=== PATIENT | female | born 1995 | race Caucasian/White ===

== ENCOUNTER → 2021-07-03 11:56 | Outpatient (CLI) | payer OTHER, SELFPAY | PROVIDERS: Visit Provider Nurse Practitioner | DX: U07.1 COVID-19 (principal) | CPT/HCPCS: C9803; U0003; U0005 ==

== ENCOUNTER 2024-04-19 19:25 | Inpatient (IN) | payer BC, SELFPAY ==
[2024-04-19 19:27] VITALS: BP 127/57; PULSE 69; RESP 16; TEMP 36.4; O2SAT 99; BMI 20.5
--- NOTE | 2024-04-19 19:45 | [facility].EDGENADL ---
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 continued to have severe pain, so she was given a second dose of IV morphine as well as IV Toradol. She continued to have vomiting despite Zofran, so she was then given IV Phenergan. We did try to give her oral potassium before we knew about her volvulus, and she did vomit this back up. On reassessment, she did have some final improvement after second dose of morphine. Vitals are stable on cardiac telemetry, no rebound or guarding noted on abdominal exam. Dr. Mcgee assumed care of the patient at 2300 and had an interactive discussion with Dr. Atkinson with general surgery. Patient was taken to the OR in stable condition. Critical Care <Kellen Nelson, - Last Filed: 04/20/24 01:27> Critical Care Time Critical Care Time: No
[2024-04-19 20:00] VITALS: BP 148/74; PULSE 68; O2SAT 96
[2024-04-19 20:24] LABS: Basophils % 0.5 % (0.1-2.0); Eosinophils % 0.4 % (0.1-12.0); Hematocrit 39.9 % (37.0-47.0); Hemoglobin 13.5 g/dL (12.2-16.2); Lymphocytes # 1.6 K/mm3 (0.7-4.5); Lymphocytes % 18.9 % (10-50); Mean Corpuscular Hemoglobin 29.6 pg (27.0-31.2); Mean Corpuscular Volume 87.2 fl (81-99); Mean Platelet Volume 7.7 fl (7.4-10.4); Monocytes # 0.4 K/mm3 (0.1-1.0); Monocytes % 4.6 % (1.7-9.3); Neutrophils # 6.5 K/mm3 (1.8-7.8); Neutrophils % 75.6 % (37.0-80.0); Platelet Count 321 K/mm3 (142-424); Red Blood Count 4.57 M/mm3 (4.20-5.40); Red Cell Distribution Width 12.2 % (11.5-17.5); White Blood Count 8.7 K/mm3 (4.8-10.8)
[2024-04-19] MEDS: ONDANSETRON 4MG/2ML VIAL 4 MG IV (20:24)
[2024-04-19] MEDS: MORPHINE 4MG/ML SYRINGE 4 MG IV ×2 (20:24→22:36)
[2024-04-19 20:28] LABS: Albumin Level 4.1 g/dl (3.5-5.0); Chloride 105 mmol/L (98-107)
[2024-04-19 20:29] LABS: Sodium 142 mmol/L (136-145)
[2024-04-19 20:30] VITALS: BP 106/73; PULSE 52; O2SAT 99
[2024-04-19 20:31] LABS: Alanine Aminotransferase 21 U/L (12-78); Alkaline Phosphatase 41 U/L (38-126); Aspartate Amino Transferase 25 U/L (14-36); Bilirubin,Total 0.3 mg/dl (0.2-1.3); Blood Urea Nitrogen 13 mg/dl (7-17); Carbon Dioxide 28 mmol/L (22.0-30.0); Creatinine Clearance Estimated 117 mL/min (50-200); Estimated Glomerular Filt Rate 117 ml/min (>60); GFR (African American) 141 ML/MIN (>60); Lipase 69 U/L (23-300)
[2024-04-19 20:32] LABS: Albumin/Globulin Ratio 1.5 (1.1-1.8); Calcium 8.5 mg/dl (8.4-10.2); Globulin 2.8 g/dL (1.3-3.2); Glucose 159 mg/dl (74-100); Total Protein,Serum 6.9 g/dl (6.3-8.2)
[2024-04-19 20:48] LABS: HCG Qualitative, Serum Negative (Negative)
[2024-04-19 21:00] VITALS: BP 110/74; PULSE 54; O2SAT 100
[2024-04-19 21:30] VITALS: BP 112/75; PULSE 59; O2SAT 100
[2024-04-19] MEDS: KETOROLAC 30MG/ML VIAL 15 MG IV (22:03)
[2024-04-19] MEDS: POTASSIUM CHLORIDE 20MEQ TAB 40 MEQ PO (22:03)
--- NOTE | 2024-04-19 22:45 | CT_ITS ---
PROCEDURE INFORMATION: Exam: CT Abdomen And Pelvis With Contrast Exam date and time: 04/19/2024 11:13 PM Age: 29 years old Clinical indication: Abdominal pain; Additional info: Pelvic pain, severe TECHNIQUE: Imaging protocol: Computed tomography of the abdomen and pelvis with contrast. Radiation optimization: All CT scans at this facility use at least one of these dose optimization techniques: automated exposure control; mA and/or kV adjustment per patient size (includes targeted exams where dose is matched to clinical indication); or iterative reconstruction. Contrast material: ISOVUE; Contrast volume: 75 ml; Contrast route: IV; COMPARISON: No relevant prior studies available. FINDINGS: Liver: Mild periportal edema. Measures 17 cm. No mass. Gallbladder and biliary ducts: Normal. No calcified stones. No ductal dilation. Pancreas: Normal. No ductal dilation. Spleen: Normal. No splenomegaly. Adrenal glands: Normal. No mass. Kidneys and ureters: Normal. No hydronephrosis. Stomach and bowel: Proportionally distended cecum and right colon with adjacent converging mesenteric vessels (series 601, image 29). Distended stomach with gastric content. Appendix: Not visualized. Intraperitoneal space: Small free fluid collection in pelvis. Vasculature: Mesenteric vessels converging adjacent to dilated right colon and cecum. In Lymph nodes: Unremarkable. No enlarged lymph nodes. Urinary bladder: Unremarkable as visualized. Reproductive: Unremarkable as visualized. Bones/joints: Pectus excavatum deformity. Soft tissues: Unremarkable. IMPRESSION: 1. Proportionally distended cecum and right colon with adjacent converging mesenteric vessels suspicious for sequela of cecal volvulus. 2. Mild periportal edema. Although nonspecific can be seen with hepatic inflammation including hepatitis and/or congestion among differential considerations. 3. Small free fluid collection in pelvis.
--- NOTE | 2024-04-19 22:45 | PC.NURSE ---
pt in US at this time. US tech called and informed ED staff pt needed pain meds. pt medicated in US room per mar
[2024-04-19] MEDS: SODIUM CHLORIDE 0.9% 10ML SYR (RAD ONLY) 10 ML IV (23:25)
[2024-04-19] MEDS: IOPAMIDOL-370 (76%);100ML BOTTLE 75 ML IV (23:25)
[2024-04-19 23:29] VITALS: BP 115/76; O2SAT 99
[2024-04-19] MEDS: PROMETHAZINE HCL 25MG/ML 1ML VIAL 12.5 MG IV (23:53)
[2024-04-19] MEDS: SODIUM CHLORIDE 0.9% 25ML BAG 25 ML IV (23:54)
[2024-04-20] VITALS (25 sets, daily range): BP systolic 95–139; BP diastolic 49–76; PULSE 50–92; RESP 14–19; TEMP 36.5–43; O2SAT 95–100
[2024-04-20] MEDS: CEFAZOLIN 1GM VIAL 1 GM (00:11)
[2024-04-20] MEDS: METRONIDAZ/SOD CHL 500 MG/100 ML PIGGYBACK 100 MG IV (00:11)
--- NOTE | 2024-04-20 01:06 | EXP.SURG.CON ---
History of Present Illness *Admission Date: 04/20/24 *Reason for visit:: Cecal volvulus *History of present illness: This is a 29-year-old female who presents to the emergency department for evaluation regarding abdominal pain. A CT scan was obtained and revealed changes consistent with cecal volvulus. Currently her pain has improved. She has remained afebrile with stable normal vital signs. Recent diagnosis of COVID noted. No shortness of air. [facility] Disclaimer: The information contained in this section may have been updated after the patient was seen, as this information can be updated by other users. Social History Smoking Status: Never smoker alcohol intake: never current occupational status: employed Travel in the last 8 weeks: None Review of Systems Review of Systems Review of systems:: pertinent systems reviewed and negative unless documented below Constitutional Constitutional: Reports system reviewed and no additional complaints, except as documented Eyes Eyes: Reports system reviewed and no additional complaints, except as documented ENT Ears, Nose, Mouth, and Throat: Reports system reviewed and no additional complaints, except as documented *Cardiovascular Cardiovascular: Reports system reviewed and no additional complaints, except as documented and Denies dyspnea on exertion *Respiratory Respiratory: Denies cough and Denies dyspnea on exertion *Gastrointestinal Gastrointestinal: Reports as per HPI *Genitourinary Genitourinary: Reports system reviewed and no additional complaints, except as documented *Musculoskeletal Musculoskeletal: Reports system reviewed and no additional complaints, except as documented Integumentary/Breasts Skin/Breast: Reports system reviewed and no additional complaints, except as documented *Neurologic Neurologic: Reports system reviewed and no additional complaints, except as documented Psychiatric Psychiatric: Reports system reviewed and no additional complaints, except as documented Endocrine Endocrine: Reports system reviewed and no additional complaints, except as documented Hematologic/Lymphatic Hematologic/Lymphatic: Reports system reviewed and no additional complaints, except as documented Allergic/Immunologic Allergic/Immunologic: Reports system reviewed and no additional complaints, except as documented Meds Home Medications and Allergies New Prescriptions to Start Prescriptions: Allergies Allergy/AdvReac Type Severity Reaction Status Date / Time No Known Allergies Allergy Verified 04/19/24 20:21 Exam (Inpt) Vital signs and Labs for Last 24 Hours: Temp Pulse Resp BP Pulse Ox O2 Del Method 97.5 F L 59 L 16 115/76 99 Room Air 04/19/24 19:27 04/19/24 21:30 04/19/24 19:27 04/19/24 23:29 04/19/24 23:29 04/19/24 19:27 Laboratory Results - last 24 hr 04/19/24 20:00: WBC 8.7, RBC 4.57, Hgb 13.5, Hct 39.9, MCV 87.2, MCH 29.6, MCHC 34.0, RDW 12.2, Plt Count 321, MPV 7.7, Neut % (Auto) 75.6, Lymph % (Auto) 18.9, [place] % (Auto) 4.6, Eos % (Auto) 0.4, Baso % (Auto) 0.5, Neut # (Auto) 6.5, Lymph # (Auto) 1.6, [place] # (Auto) 0.4, Eos # (Auto) 0.0, Baso # (Auto) 0.0, Sodium 142, Potassium 3.0 L, Chloride 105, Carbon Dioxide 28, Anion Gap 12.0, BUN 13, Creatinine 0.60, Estimated Creat Clear 117, Estimated GFR 117, Est GFR ( Amer) 141, Glucose 159 H, Calcium 8.5, Total Bilirubin 0.3, AST 25, ALT 21, Alkaline Phosphatase 41, Total Protein 6.9, Albumin 4.1, Globulin 2.8, Albumin/Globulin Ratio 1.5, Lipase 69, Serum HCG, Qual Negative I & O for Labs for Last 24 Hours: Intake & Output 04/17/24 04/18/24 04/19/24 04/20/24 11:59 11:59 11:59 11:59 Weight 120 lb Constitutional: no acute distress Head: Present normocephalic and atraumatic Neck: Present full ROM Respiratory: Absent respiratory distress Cardiac: Absent Tachycardia GI: Present soft and tenderness Rectal (female): Present deferred (female): Present deferred Extremities: Present full ROM Skin: Present intact Neuro: Present alert and awake Results Labs 04/19/24 20:00 04/19/24 20:00 Labs: Laboratory Results - last 24 hr 04/19/24 20:00: WBC 8.7, RBC 4.57, Hgb 13.5, Hct 39.9, MCV 87.2, MCH 29.6, MCHC 34.0, RDW 12.2, Plt Count 321, MPV 7.7, Neut % (Auto) 75.6, Lymph % (Auto) 18.9, [place] % (Auto) 4.6, Eos % (Auto) 0.4, Baso % (Auto) 0.5, Neut # (Auto) 6.5, Lymph # (Auto) 1.6, [place] # (Auto) 0.4, Eos # (Auto) 0.0, Baso # (Auto) 0.0, Sodium 142, Potassium 3.0 L, Chloride 105, Carbon Dioxide 28, Anion Gap 12.0, BUN 13, Creatinine 0.60, Estimated Creat Clear 117, Estimated GFR 117, Est GFR ( Amer) 141, Glucose 159 H, Calcium 8.5, Total Bilirubin 0.3, AST 25, ALT 21, Alkaline Phosphatase 41, Total Protein 6.9, Albumin 4.1, Globulin 2.8, Albumin/Globulin Ratio 1.5, Lipase 69, Serum HCG, Qual Negative Imaging CT scan - abdomen: report reviewed and image reviewed CT scan - pelvis: report reviewed and image reviewed Assessment and Plan *Assessment and plan (1) Cecal volvulus: Status: Acute Category: Medical Code(s): K56.2 - Volvulus Plan: The patient is being taken to the operating room urgently for exploratory laparotomy, colon resection, and possible ostomy. I have discussed the risks and benefits including, but not limited to: Bleeding Infection Damage to surrounding tissue Inherent risks of sedation The patient agrees to proceed. The patient is being mated to the hospitalist service secondary to recent diagnosis of COVID.
--- NOTE | 2024-04-20 01:35 | P.HP_ITS ---
<Statement entered by Stuart Mata MD - 04/23/24 15:20> Personally examined the patient and agree with the plan of care outlined by PETROLEUM GEOLOGY FACULTY MEMBER. History of Present Illness *Admission Date: 04/20/24 *History of present illness: This is a 29-year-old female who presents to the emergency department for evaluation regarding abdominal pain. A CT scan was obtained and revealed changes consistent with cecal volvulus. Currently her pain has improved. She has remained afebrile with stable normal vital signs. Of note, she is COVID-positive. Reports being sick last week but has been managing symptoms at home and has been feeling okay. She reports suddenly this evening starting to have pelvic abdominal pain that felt like gas. She did take Gas-X without any relief. She did have a episode of vomiting. States the pain is intermittent and comes in waves. States that she is not sexually active. [facility] Disclaimer: The information contained in this section may have been updated after the patient was seen, as this information can be updated by other users. Social History Smoking Status: Never smoker alcohol intake: never current occupational status: employed Travel in the last 8 weeks: None Review of Systems Review of Systems Review of systems:: other Review of systems (narrative): Negative except for HPI *Neurologic Neurologic: Reports system reviewed and no additional complaints, except as documented Meds Home Medications and Allergies New Prescriptions to Start Prescriptions: Allergies Allergy/AdvReac Type Severity Reaction Status Date / Time No Known Allergies Allergy Verified 04/19/24 20:21 Exam Data for Last 24 hours Vital signs and Labs for Last 24 Hours: Temp Pulse Resp BP Pulse Ox O2 Del Method 98.2 F 65 16 115/76 99 Room Air 04/20/24 01:14 04/20/24 01:14 04/20/24 01:14 04/20/24 01:14 04/19/24 23:29 04/20/24 01:14 Laboratory Results - last 24 hr 04/19/24 20:00: WBC 8.7, RBC 4.57, Hgb 13.5, Hct 39.9, MCV 87.2, MCH 29.6, MCHC 34.0, RDW 12.2, Plt Count 321, MPV 7.7, Neut % (Auto) 75.6, Lymph % (Auto) 18.9, [place] % (Auto) 4.6, Eos % (Auto) 0.4, Baso % (Auto) 0.5, Neut # (Auto) 6.5, Lymph # (Auto) 1.6, [place] # (Auto) 0.4, Eos # (Auto) 0.0, Baso # (Auto) 0.0, Sodium 142, Potassium 3.0 L, Chloride 105, Carbon Dioxide 28, Anion Gap 12.0, BUN 13, Creatinine 0.60, Estimated Creat Clear 117, Estimated GFR 117, Est GFR ( Amer) 141, Glucose 159 H, Calcium 8.5, Total Bilirubin 0.3, AST 25, ALT 21, Sara line Phosphatase 41, Total Protein 6.9, Albumin 4.1, Globulin 2.8, Albumin/Globulin Ratio 1.5, Lipase 69, Serum HCG, Qual Negative I & O for Last 24 hours: Intake & Output 04/17/24 04/18/24 04/19/24 04/20/24 23:59 23:59 23:59 23:59 Weight 54.431 kg Constitutional Constitutional: no acute distress *Routine HEENT Exam Head: Present normocephalic Eye: Present EOMI and PERRL ENT: Present mucous membranes moist *Routine Neck Exam Neck: Present supple; Absent lymphadenopathy *Routine Respiratory Exam Respiratory: Present CTA bilaterally *Routine Cardiovascular Exam Cardiovascular: Present RRR *Routine Abdominal Exam Abdominal: Present soft Comments: Diffuse abdominal tenderness, soft and compressible *Routine Rectal Exam Rectal:: deferred *Routine Genitalia Exam Genitalia:: deferred *Routine Extremities Exam Extremities: Absent cyanosis, clubbing or edema *Routine Skin Exam Skin: Present warm; Absent rash *Routine Neurological Exam Neurological: Present alert and oriented X3 Assessment and Plan *Assessment and plan (1) Cecal volvulus: Status: Acute Category: Medical Code(s): K56.2 - Volvulus (2) COVID-19: Status: Acute Category: Medical Code(s): U07.1 - COVID-19 Plan Admit to medicine #Cecal volvulus Dr Atkisnon consulted and will take patient to OR for exploratory laparotomy. N.p.o. with maintenance IV fluids Antibiotics initiated in OR, will continue per recommendations Multimodal pain medication Antiemetics as needed #COVID-19 Reported positive test at home. Has been asymptomatic. Will defer COVID directed therapies at this time
--- NOTE | 2024-04-20 01:52 | P.PNANES_ITS ---
[facility] Disclaimer: The information contained in this section may have been updated after the patient was seen, as this information can be updated by other users. Social History Smoking Status: Never smoker alcohol intake: never substance use type: denies use current occupational status: employed Travel in the last 8 weeks: None [facility] Anesthesia Checklist Patient Identification Patient Identification: Arm Band Structural Data Admitted From: Emergency Dept Planned Operative Procedure/s: Exploratory Laparotomy Consent for Planned Operative Procedure(s) Verified: Yes Verified Documents: Surgical Consent NPO Status Verified Time NPO: 00:00 ( Apple Sauce around Midnight ) Additional verifications Anesthesia Reactions: No Airway Assessment Mallampati Score:: Class I C-Spine Mobility Assessed: Yes TMJ Mobility Assessed: Yes Dentition: Good Dentition Neurological Assessment Level of Consciousness: Awake, Alert and Appropriate Anesthesia Plan Anesthesia Risk discussed: Yes Anesthesia Plan: Verified ASA Class: II (E) Anesthesia Type: General
--- NOTE | 2024-04-20 03:19 | EXP.OP.NOTE ---
Date of procedure: 04/20/24 Pre-op Diagnosis:: Cecal volvulus Post-op Diagnosis:: Same Procedure performed:: Exploratory laparotomy with right hemicolectomy and primary anastomosis Surgeon:: Steve Atkinson MD PROCESS DEVELOPMENT TECHNICIAN:: Daryl Holloway Anesthesia: GETA Estimated blood loss (mL): 50 Operative findings:: Distended volvulized cecum without evidence of ischemia Operative note:: After informed consent was obtained the patient was taken to the operating room and placed in the supine position. General anesthesia was induced and her abdomen was prepped and draped in a sterile fashion. A midline laparotomy incision was made. The abdomen was entered with a combination of sharp dissection and electrocautery. Evaluation revealed a distended cecum with volvulus but no evidence of ischemia. The right colon/cecum was carefully elevated and untwisted . Electrocautery was utilized to transect the right lateral attachments as the colon was rotated medially. A transection site in the proximal transverse colon was elevated. After a mesenteric window was completed a linear stapling device was utilized to divide at this site. The terminal ileum was elevated and divided in the same manner. The intervening mesentery was transected with the Enseal device. The specimen was passed off for pathologic evaluation. The distal ileum and the transverse colon were brought into [id number] apposition. A stapled anastomosis was completed utilizing the linear stapling device. The common otomy was closed with a TX stapler. The crotch was imbricated with interrupted 3-0 Nurolon. The stapled margin was also imbricated with interrupted Nurolon. The mesenteric defect was reapproximated with running 2-0 Vicryl and the abdomen was irrigated. Fascia was reapproximated with #2 Novafil and skin was stapled. Dressings were applied and the patient was transferred to recovery in stable condition. Condition: stable Disposition: PACU Specimens:: Right colon Complications:: No immediate
--- NOTE | 2024-04-20 03:30 | P.PNANES_ITS ---
[facility] Anesthesia Record Part I Anesthesia Record I Intake, IV Amount: 1,800 Hydration: Adequate Estimated blood loss (mL): 50 Urine output (mL): 200 Blood Products used (#): none Blood Pressure: 111/65 SaO2: 95 Pulse Rate: 88 Airway Patency: Patent Respiratory Rate: 16 Temperature: 98.1 F Patient is:: Drowsy and Stable Stable to PACU at:: 03:20
[2024-04-20 03:49] LABS: Microscopic,Cath URINE MICROSCOPIC (MICROSCOPIC)
[2024-04-20 03:51] LABS: Appearance,Urine/Cath CLEAR (Clear); Bilirubin,Cath Negative (Negative); Blood, Urine/Cath TRACE-I (Negative); Color,Urine/Cath YELLOW (Yellow); Glucose,Urine/Cath (UA) Negative (Negative); Ketones,Urine/Cath Negative (Negative); Leukocyte Esterase,Cath Negative (Negative); Nitrate,Cath Negative (Negative); PH,Urine/Cath 6.5 (5.0-8.5); Protein,Urine/Cath Negative (Negative); Urobilinogen,Cath 0.2 EU/dl (0.2)
[2024-04-20 04:09] LABS: Bacteria,Urine/Cath TRACE /lpf; RBC,Urine/Cath Occasional # /hpf (0-3)
--- NOTE | 2024-04-20 04:09 | SUR.PHASEI ---
0350- detailed report called to rukhsana raza on [facility] floor. 0351- pt left in stable condition with rukhsana raza in rm 211. Pt VSS, dressings CDI, NG tube attached to low wall suction, Gomez secured and draining. Family at bedside.
--- NOTE | 2024-04-20 04:29 | PC.NURSE ---
Patient attempted to rate pain on a scale of 1 -10; patient was unsure and stated her pain was just enough for [her] to feel. Iraj GUILLERMO was paged about pain medication. She stated that the morphine 4 mg/1 mL will be ok for her to receive for now.
[2024-04-20] MEDS: MORPHINE 4MG/ML SYRINGE 4 MG IV ×2 (04:47→08:55)
[2024-04-20] MEDS: LACTATED RINGERS 1000ML 1,000 ML 100 ML IV ×2 (04:49→19:09)
[2024-04-20 06:22] LABS: Basophils % 0.1 % (0.1-2.0); Eosinophils % 0.1 % (0.1-12.0); Hematocrit 34.6 % (37.0-47.0); Lymphocytes # 0.6 K/mm3 (0.7-4.5); Lymphocytes % 7.2 % (10-50); Mean Corpuscular HGB Conc 34.1 g/dL (31.8-35.4); Mean Corpuscular Hemoglobin 30.5 pg (27.0-31.2); Mean Corpuscular Volume 89.2 fl (81-99); Mean Platelet Volume 7.9 fl (7.4-10.4); Monocytes # 0.5 K/mm3 (0.1-1.0); Monocytes % 5.5 % (1.7-9.3); Neutrophils # 7.1 K/mm3 (1.8-7.8); Neutrophils % 87.1 % (37.0-80.0); Platelet Count 266 K/mm3 (142-424); Red Blood Count 3.88 M/mm3 (4.20-5.40); White Blood Count 8.2 K/mm3 (4.8-10.8)
[2024-04-20 06:27] LABS: Chloride 110 mmol/L (98-107); Hemoglobin 11.9 g/dL (12.2-16.2); MANUAL DIFFERENTIAL MANUAL DIFFERENTIAL (MANUAL DIFF); Potassium 3.4 mmoL/L (3.5-5.1); Sodium 142 mmol/L (136-145)
[2024-04-20 06:30] LABS: Anion Gap 7.4 mEq/L (5-15); Blood Urea Nitrogen 10 mg/dl (7-17); Carbon Dioxide 28 mmol/L (22.0-30.0); Creatinine Clearance Estimated 140 mL/min (50-200); Estimated Glomerular Filt Rate 144 ml/min (>60); GFR (African American) 174 ML/MIN (>60); Glucose 133 mg/dl (74-100); Magnesium 1.6 mg/dl (1.6-2.3); Phosphorous 2.8 mg/dl (2.5-4.5)
[2024-04-20] MEDS: PIPERCILLIN/TAZO 3.375 GM in 0.9 % SODIUM CHLORIDE 50 ML IV ×4 (06:38→23:45)
--- NOTE | 2024-04-20 08:34 | P.PNANES_ITS ---
[facility] Anesthesia Record Part II Anesthesia Record Part II Discharge Time: 03:50 Destination: Medical Surgical Department PACU nurse assessment reviewed?: Yes Patient Condition:: Good Anesthesia Complications:: None Swallowing reflex intact?: Yes Airway Patency: Patent Cyanosis?: No Blood Pressure: 132/59 SaO2: 99 Respiratory Rate: 16 Pulse Rate: 90 Temperature: 98.1 F Mental Status: Alert & Oriented Pain level:: 0 Nausea and/or vomitting:: None Intake, IV Amount: 0 Hydration: Adequate
[2024-04-20 09:15] LABS: Lymphocytes % 11 % (10-50); Monocytes % 1 % (2-9); Neutrophils % 88 % (42-76); Platelet Estimate Normal; RBC Morphology Normal; Total Cells Counted 100
[2024-04-20] MEDS: MORPHINE 10MG/ML 30ML PCA IV (11:35)
--- NOTE | 2024-04-20 12:57 | P.PN_ITS ---
Subjective Narrative: resting Exam Data for Last 24 hours Vital signs and Labs for Last 24 Hours: Temp Pulse Resp BP Pulse Ox O2 Del Method 97.7 F 50 L 16 104/55 L 96 Room Air 04/20/24 08:00 04/20/24 12:01 04/20/24 12:01 04/20/24 12:01 04/20/24 12:01 04/20/24 12:01 Laboratory Results - last 24 hr 04/19/24 20:00: WBC 8.7, RBC 4.57, Hgb 13.5, Hct 39.9, MCV 87.2, MCH 29.6, MCHC 34.0, RDW 12.2, Plt Count 321, MPV 7.7, Neut % (Auto) 75.6, Lymph % (Auto) 18.9, [place] % (Auto) 4.6, Eos % (Auto) 0.4, Baso % (Auto) 0.5, Neut # (Auto) 6.5, Lymph # (Auto) 1.6, [place] # (Auto) 0.4, Eos # (Auto) 0.0, Baso # (Auto) 0.0, Sodium 142, Potassium 3.0 L, Chloride 105, Carbon Dioxide 28, Anion Gap 12.0, BUN 13, Creatinine 0.60, Estimated Creat Clear 117, Estimated GFR 117, Est GFR ( Amer) 141, Glucose 159 H, Calcium 8.5, Total Bilirubin 0.3, AST 25, ALT 21, Alkaline Phosphatase 41, Total Protein 6.9, Albumin 4.1, Globulin 2.8, Albumin/Globulin Ratio 1.5, Lipase 69, Serum HCG, Qual Negative 04/20/24 01:15: Urine Color Yellow, Urine Appearance Clear, Urine pH 6.5, Ur Specific [place] 1.010, Urine Protein Negative, Urine Glucose (UA) Negative, Urine Ketones Negative, Urine Blood Trace-i, Urine Nitrate Negative, Urine Bilirubin Negative, Urine Urobilinogen 0.2, Ur Leukocyte Esterase Negative, Urine RBC Occasional, Urine WBC None, Ur Squamous Epith Cells 3-5, Urine Bacteria Trace 04/20/24 05:55: WBC 8.2, RBC 3.88 L, Hgb 11.9 L D, Hct 34.6 L, MCV 89.2, MCH 30.5, MCHC 34.1, RDW 12.0, Plt Count 266, MPV 7.9, Neut % (Auto) 87.1 H, Lymph % (Auto) 7.2 L, [place] % (Auto) 5.5, Eos % (Auto) 0.1, Baso % (Auto) 0.1, Neut # (Auto) 7.1, Lymph # (Auto) 0.6 L, [place] # (Auto) 0.5, Eos # (Auto) 0.0, Baso # (Auto) 0.0, Total Counted 100, Neutrophils % (Manual) 88 H, Lymphocytes % (Manual) 11, Monocytes % (Manual) 1 L, Platelet Estimate Normal, RBC Morphology Normal, Sodium 142, Potassium 3.4 L, Chloride 110 H, Carbon Dioxide 28, Anion Gap 7.4, BUN 10, Creatinine 0.50 L, Estimated Creat Clear 140, Estimated GFR 144, Est GFR ( Amer) 174 D, Glucose 133 H, Calcium 8.0 L, Phosphorus 2.8, Magnesium 1.6 I & O for Last 24 hours: Intake & Output 04/18/24 04/19/24 04/20/24 04/21/24 11:59 11:59 11:59 11:59 Intake Total 1800 / 1800 Output Total 175 / 175 1400 / 1400 Balance 1625 / 1625 -1400 / -1400 Weight 120 lb Constitutional Constitutional: no acute distress *Routine Respiratory Exam Respiratory: Absent respiratory distress *Routine Cardiovascular Exam Cardiovascular: Absent tachycardia *Routine Abdominal Exam Comments: dressi Progress Note: A&P Assessment and plan (1) Cecal volvulus: Status: Acute Assessment and plan: Stable status post exploratory laparotomy with right hemicolectomy. Continue nasogastric decompression for now Continue postoperative antibiotics (emergent exploration/no mechanical prep) for now (2) COVID-19: Status: Acute
--- NOTE | 2024-04-20 18:12 | PC.NURSE ---
PT A&OX4 and resting in bed on her left side. pt has complained of pain intermittently, LOKIE DRIVER pump initiated per aug. mouth care completed. new iv started in the left wrist to administer abx. adequate output via powers. dressing to the abdomen in place with dried blood outlined- no changes throughout the shift today. LR running at maintenance rate. NG to the rt nare hooked to low wall suction draining green/brown fluid. family at bedside. no complaints at this time. call light within reach
[2024-04-20] MEDS: PANTOPRAZOLE 40MG VIAL 40 MG IV (20:18)
[2024-04-21] VITALS (9 sets, daily range): BP systolic 96–127; BP diastolic 48–81; PULSE 60–94; RESP 14–18; TEMP 36.7–37.2; O2SAT 95–100; BMI 22.1
[2024-04-21] MEDS: MORPHINE 10MG/ML 30ML PCA IV (05:00)
--- NOTE | 2024-04-21 05:28 | PC.NURSE ---
27.6 cleared from PHOTOGRAPHIC LITHOGRAPHER pump
[2024-04-21] MEDS: LACTATED RINGERS 1000ML 1,000 ML 100 ML IV (05:53)
[2024-04-21] MEDS: PIPERCILLIN/TAZO 3.375 GM in 0.9 % SODIUM CHLORIDE 50 ML IV (05:58)
--- NOTE | 2024-04-21 06:27 | PC.NURSE ---
Patient is alert and oriented. Patient does not want to be moved in bed, NG in place at 60cm to right nare, low wall suction, minimal output this shift of light green fluid. Gomez in place and draining. Midline in place, dressing shoes blood stain, marked and has not grown since marking. CONSTRUCTION CODE ADMINISTRATOR pump in place. Call light in reach.
[2024-04-21 06:41] LABS: Basophils % 0.6 % (0.1-2.0); Eosinophils % 0.5 % (0.1-12.0); Hematocrit 35.7 % (37.0-47.0); Hemoglobin 11.6 g/dL (12.2-16.2); Lymphocytes # 1.1 K/mm3 (0.7-4.5); Lymphocytes % 16.8 % (10-50); Mean Corpuscular HGB Conc 32.4 g/dL (31.8-35.4); Mean Corpuscular Hemoglobin 29.9 pg (27.0-31.2); Mean Corpuscular Volume 92.5 fl (81-99); Monocytes # 0.5 K/mm3 (0.1-1.0); Monocytes % 8.6 % (1.7-9.3); Neutrophils # 4.7 K/mm3 (1.8-7.8); Neutrophils % 73.6 % (37.0-80.0); Platelet Count 232 K/mm3 (142-424); Red Blood Count 3.86 M/mm3 (4.20-5.40); White Blood Count 6.4 K/mm3 (4.8-10.8)
[2024-04-21 06:59] LABS: Anion Gap 8.5 mEq/L (5-15); Blood Urea Nitrogen 11 mg/dl (7-17); Calcium 7.6 mg/dl (8.4-10.2); Carbon Dioxide 25 mmol/L (22.0-30.0); Chloride 109 mmol/L (98-107); Creatinine Clearance Estimated 152 mL/min (50-200); Estimated Glomerular Filt Rate 144 ml/min (>60); GFR (African American) 174 ML/MIN (>60); Glucose 76 mg/dl (74-100); Potassium 3.5 mmoL/L (3.5-5.1); Sodium 139 mmol/L (136-145)
--- NOTE | 2024-04-21 09:08 | EXP.SURG.PN ---
Subjective Patient reports: no new complaints Exam Data for Last 24 hours Vital signs and Labs for Last 24 Hours: Temp Pulse Resp BP Pulse Ox O2 Del Method 98.3 F 84 15 127/75 97 Room Air 04/21/24 08:00 04/21/24 08:00 04/21/24 08:00 04/21/24 08:00 04/21/24 08:00 04/21/24 08:12 Laboratory Results - last 24 hr 04/20/24 05:55: Total Counted 100, Neutrophils % (Manual) 88 H, Lymphocytes % (Manual) 11, Monocytes % (Manual) 1 L, Platelet Estimate Normal, RBC Morphology Normal 04/21/24 06:15: WBC 6.4, RBC 3.86 L, Hgb 11.6 L, Hct 35.7 L, MCV 92.5, MCH 29.9, MCHC 32.4, RDW 12.0, Plt Count 232, MPV 8.0, Neut % (Auto) 73.6, Lymph % (Auto) 16.8, [place] % (Auto) 8.6, Eos % (Auto) 0.5, Baso % (Auto) 0.6, Neut # (Auto) 4.7, Lymph # (Auto) 1.1, [place] # (Auto) 0.5, Eos # (Auto) 0.0, Baso # (Auto) 0.0, Sodium 139, Potassium 3.5, Chloride 109 H, Carbon Dioxide 25, Anion Gap 8.5, BUN 11, Creatinine 0.50 L, Estimated Creat Clear 152, Estimated GFR 144, Est GFR ( Amer) 174, Glucose 76, Calcium 7.6 L I & O for Last 24 hours: Intake & Output 04/18/24 04/19/24 04/20/24 04/21/24 11:59 11:59 11:59 11:59 Intake Total 1800 / 1800 481 / 481 Output Total 175 / 175 1920 / 1920 Balance 1625 / 1625 -1439 / -1439 Weight 120 lb 129 lb 14.4 oz Constitutional Constitutional: no acute distress Comments: somewhat slow to respond to questions *Routine Respiratory Exam Respiratory: Absent respiratory distress *Routine Cardiovascular Exam Cardiovascular: Absent tachycardia *Routine Abdominal Exam Comments: dressing in place. no erythema. Progress Note: A&P Assessment and plan (1) Cecal volvulus: Status: Acute Assessment and plan: stable s/p ex-lap with right elton-colectomy. somewhat slow to answer questions (seemingly secondary to pain medication). decrease MOLDED RUBBER GOODS CUTTER DC powers increase ambulation NG to drain bag (2) COVID-19: Status: Acute
--- NOTE | 2024-04-21 09:38 | PC.NURSE ---
DAIRY PROCESSING EQUIPMENT OPERATOR dosage change to 0.5 verified with Steffanie SALDIVAR. F/C REMOVED and NG placed to drainage bag.
--- NOTE | 2024-04-21 14:18 | PC.NURSE ---
Zero residual at 09:00 from NG.
--- NOTE | 2024-04-21 14:19 | PC.NURSE ---
13:00 Zero residual from NG. Got patient up and to chair.
--- NOTE | 2024-04-21 16:25 | HMH.PTEV ---
Physical Therapy Evaluation Rehab PT IP Evaluation Start: 04/21/24 14:51 Freq: ONCE Status: Active Protocol: Document 04/21/24 16:14 [email or web address] (Rec: 04/21/24 16:25 PHORANNA [id number]) Subjective/History History History This is the initial eval for Leanna Feldman. Pt is a 29-year- old female who presents w/ abdominal pain secondary to s/ p exploratory laparotomy 2 days ago. Additionally, pt is COVID positive. Pt was previously independent w/ ADLs and no assistive device. Pt reports 2 steps to get into home. Subjective Subjective Pt presents sitting in bedside chair this afternoon. Pt is awake and oriented x3 this morning. Pt states her pain is 2/10 and c/o abdominal pain. Pt consents to PT services. New diagnosis of cancer in past 12 No months? Rehab PT IP Eval Objective Appearance Patient Behavior Appropriate,Cooperative Patient Orientation Person,Place,Birthday Difficulty following instructions none Speech Pattern Clear,Appropriate,Coherent Ambulation Patient Able to Ambulate Yes Ambulation Observation IP General Gait Pattern Observation Decrease Stride Lngth (R), Decrease Stride Lngth (L) Ambulation Distance (feet) 30 Ambulation Assistive Device None Ambulation Ability Contact Guard/Hand Hold Balance Ability to Arise Able, uses arms to help Sitting Balance Steady, safe Standing Balance Steady, wide stance Dynamic Sitting Balance Ability Good Dynamic Standing Balance Ability Good Transfers Sit to Stand Chair Transfer Ability Supervision/Stand by Rehab PT IP prob,goals,plan Problems Date of Evaluation: 04/21/24 Discharge Plan PT Discharge Plan Currently, pt is most appropriate for home health once medically stable for d/c. Additionally, PT services are not currently indicated. Pt was educated on supine to sit transfers to increase efficiency and decrease pain. PHYSICIAN CERTIFICATION: I certify the specified therapy services for Leanna Feldman are required, authorized, and reviewed every 30 days.
[2024-04-21] MEDS: PANTOPRAZOLE 40MG VIAL 40 MG IV (20:26)
--- NOTE | 2024-04-21 22:15 | EXP.PN ---
Subjective *Date: 04/21/24 *Time: 22:15 Exam Data for Last 24 hours Vital signs and Labs for Last 24 Hours: Temp Pulse Resp BP Pulse Ox O2 Del Method 98.1 F 94 H 18 125/74 99 Room Air 04/21/24 20:00 04/21/24 20:00 04/21/24 20:00 04/21/24 20:00 04/21/24 20:00 04/21/24 21:00 Laboratory Results - last 24 hr 04/21/24 06:15: WBC 6.4, RBC 3.86 L, Hgb 11.6 L, Hct 35.7 L, MCV 92.5, MCH 29.9, MCHC 32.4, RDW 12.0, Plt Count 232, MPV 8.0, Neut % (Auto) 73.6, Lymph % (Auto) 16.8, [place] % (Auto) 8.6, Eos % (Auto) 0.5, Baso % (Auto) 0.6, Neut # (Auto) 4.7, Lymph # (Auto) 1.1, [place] # (Auto) 0.5, Eos # (Auto) 0.0, Baso # (Auto) 0.0, Sodium 139, Potassium 3.5, Chloride 109 H, Carbon Dioxide 25, Anion Gap 8.5, BUN 11, Creatinine 0.50 L, Estimated Creat Clear 152, Estimated GFR 144, Est GFR ( Amer) 174, Glucose 76, Calcium 7.6 L I & O for Last 24 hours: Intake & Output 04/18/24 04/19/24 04/20/24 04/21/24 23:59 23:59 23:59 23:59 Intake Total 2281 / 2281 Output Total 1695 / 1695 400 / 400 Balance 586 / 586 -400 / -400 Weight 54.431 kg 58.922 kg Constitutional Constitutional: no acute distress and disheveled *Routine HEENT Exam Head: Present normocephalic Eye: Present EOMI and PERRL ENT: Present mucous membranes moist *Routine Neck Exam Neck: Present supple; Absent lymphadenopathy *Routine Respiratory Exam Respiratory: Present CTA bilaterally *Routine Cardiovascular Exam Cardiovascular: Present RRR *Routine Abdominal Exam Abdominal: Present soft, normoactive bowel sounds and tenderness Comments: Dressing in place *Routine Extremities Exam Extremities: Absent cyanosis, clubbing or edema *Routine Skin Exam Skin: Present warm; Absent rash *Routine Neurological Exam Neurological: Present alert and oriented X3 Assessment and Plan *Assessment and plan (1) Cecal volvulus: Status: Acute Category: Medical Code(s): K56.2 - Volvulus (2) COVID-19: Status: Acute Category: Medical Code(s): U07.1 - COVID-19 Plan Admit to medicine #Cecal volvulus Dr Atkinson consulted and will take patient to OR for exploratory laparotomy. s/p ex-lap with right elton-colectomy Has not passed gas yet, minimal to bowel sounds. Plan for KUB if no improvement tomorrow. NPO for now. #COVID-19 Reported positive test at home. Has been asymptomatic. Will defer COVID directed therapies at this time
[2024-04-22] VITALS (10 sets, daily range): BP systolic 118–130; BP diastolic 68–90; PULSE 62–90; RESP 14–18; TEMP 36.4–37.1; O2SAT 96–99; BMI 22.1
[2024-04-22] MEDS: LACTATED RINGERS 1000ML 1,000 ML 100 ML IV ×3 (01:09→20:18)
--- NOTE | 2024-04-22 07:16 | PC.NURSE ---
7.5 mg used of ROADWAY DESIGNER pump, no drainage in NG drainage bag
--- NOTE | 2024-04-22 07:24 | XR_ITS ---
PROCEDURE INFORMATION: Exam: XR Abdomen Exam date and time: 04/22/2024 7:32 AM Age: 29 years old Clinical indication: Other: Eval; Additional info: Minimal bowel sounds, eval for ileus vs other TECHNIQUE: Imaging protocol: Radiologic exam of the abdomen. Views: Frontal supine view of the abdomen. 1 View. COMPARISON: CT ABDOMEN PELVIS W CON 04/19/2024 11:13 PM FINDINGS: Tubes, catheters and devices: There is an NG tube terminating in the distal stomach. Lungs: Lung bases are clear. Gastrointestinal tract: There is mild gaseous distension of small and large bowel loops consistent with mild ileus. No compelling evidence of bowel obstruction. Intraperitoneal space: There are multiple surgical sutures right lower quadrant. Bones/joints: Unremarkable. Soft tissues: There are multiple surgical aneta along the skin surface. IMPRESSION: Bowel-gas pattern consistent with mild ileus.
[2024-04-22 07:48] LABS: Basophils % 0.3 % (0.1-2.0); Eosinophils # 0.1 K/mm3 (0.0-0.4); Eosinophils % 1.1 % (0.1-12.0); Hematocrit 36.1 % (37.0-47.0); Hemoglobin 12.3 g/dL (12.2-16.2); Lymphocytes # 1.2 K/mm3 (0.7-4.5); Lymphocytes % 18.3 % (10-50); Mean Corpuscular HGB Conc 34.1 g/dL (31.8-35.4); Mean Corpuscular Hemoglobin 30.7 pg (27.0-31.2); Mean Corpuscular Volume 89.9 fl (81-99); Mean Platelet Volume 7.7 fl (7.4-10.4); Monocytes # 0.4 K/mm3 (0.1-1.0); Neutrophils % 74.3 % (37.0-80.0); Platelet Count 295 K/mm3 (142-424); Red Blood Count 4.02 M/mm3 (4.20-5.40); Red Cell Distribution Width 12.1 % (11.5-17.5); White Blood Count 6.7 K/mm3 (4.8-10.8)
[2024-04-22 08:08] LABS: Albumin Level 3.4 g/dl (3.5-5.0); Chloride 105 mmol/L (98-107); Potassium 3.6 mmoL/L (3.5-5.1); Sodium 137 mmol/L (136-145)
[2024-04-22 08:10] LABS: Blood Urea Nitrogen 10 mg/dl (7-17); Creatinine Clearance Estimated 127 mL/min (50-200); Estimated Glomerular Filt Rate 117 ml/min (>60); GFR (African American) 141 ML/MIN (>60)
[2024-04-22 08:11] LABS: Alanine Aminotransferase 27 U/L (12-78); Albumin/Globulin Ratio 1.3 (1.1-1.8); Alkaline Phosphatase 52 U/L (38-126); Anion Gap 13.6 mEq/L (5-15); Aspartate Amino Transferase 53 U/L (14-36); Bilirubin,Total 0.9 mg/dl (0.2-1.3); Calcium 8.2 mg/dl (8.4-10.2); Carbon Dioxide 22 mmol/L (22.0-30.0); Globulin 2.7 g/dL (1.3-3.2); Glucose 83 mg/dl (74-100); Total Protein,Serum 6.1 g/dl (6.3-8.2)
--- NOTE | 2024-04-22 09:29 | P.PN_ITS ---
Subjective Narrative: Patient's pain much better controlled. Minimal use of BLOCK BOLTER MULE OPERATOR. Much more alert. No output from NG tube to gravity bag. No nausea. Exam Data for Last 24 hours Vital signs and Labs for Last 24 Hours: Temp Pulse Resp BP Pulse Ox O2 Del Method 97.6 F 70 18 120/72 96 Room Air 04/22/24 08:00 04/22/24 08:00 04/22/24 08:00 04/22/24 08:00 04/22/24 08:00 04/22/24 08:37 Laboratory Results - last 24 hr 04/22/24 07:40: WBC 6.7, RBC 4.02 L, Hgb 12.3, Hct 36.1 L, MCV 89.9, MCH 30.7, MCHC 34.1, RDW 12.1, Plt Count 295 D, MPV 7.7, Neut % (Auto) 74.3, Lymph % (Auto) 18.3, [place] % (Auto) 6.0, Eos % (Auto) 1.1, Baso % (Auto) 0.3, Neut # (Auto) 5.0, Lymph # (Auto) 1.2, [place] # (Auto) 0.4, Eos # (Auto) 0.1, Baso # (Auto) 0.0, Sodium 137, Potassium 3.6, Chloride 105, Carbon Dioxide 22, Anion Gap 13.6, BUN 10, Creatinine 0.60, Estimated Creat Clear 127, Estimated GFR 117, Est GFR ( Amer) 141, Glucose 83, Calcium 8.2 L, Total Bilirubin 0.9, AST 53 H D, ALT 27 D, Alkaline Phosphatase 52, Total Protein 6.1 L, Albumin 3.4 L, Globulin 2.7, Albumin/Globulin Ratio 1.3 I & O for Last 24 hours: Intake & Output 04/19/24 04/20/24 04/21/24 04/22/24 11:59 11:59 11:59 11:59 Intake Total 1800 / 1800 481 / 481 Output Total 175 / 175 1920 / 1920 0 / 0 Balance 1625 / 1625 -1439 / -1439 0 / 0 Weight 120 lb 129 lb 14.4 oz 130 lb 0.881 oz *Routine Abdominal Exam Abdominal: Present soft and tenderness Comments: Some serosanguineous drainage on dressing but stable. Incisional tenderness. Progress Note: A&P Assessment and plan (1) Cecal volvulus: Status: Acute Assessment and plan: Postoperative day #2. DC NG tube. Continue with just ice chips. Increase ambulation. May chew gum. (2) COVID-19: Status: Acute
--- NOTE | 2024-04-22 13:52 | EXP.PN ---
Subjective *Date: 04/22/24 *Time: 13:52 Interval history: Patient states she is doing well today, continues to have abdominal soreness. Ambulate around the floor today. NG tube removed. Having bowel sounds today. Exam Data for Last 24 hours Vital signs and Labs for Last 24 Hours: Temp Pulse Resp BP Pulse Ox O2 Del Method 98.1 F 88 18 124/78 97 Room Air 04/22/24 12:00 04/22/24 12:00 04/22/24 12:00 04/22/24 12:00 04/22/24 12:00 04/22/24 12:58 Laboratory Results - last 24 hr 04/22/24 07:40: WBC 6.7, RBC 4.02 L, Hgb 12.3, Hct 36.1 L, MCV 89.9, MCH 30.7, MCHC 34.1, RDW 12.1, Plt Count 295 D, MPV 7.7, Neut % (Auto) 74.3, Lymph % (Auto) 18.3, [place] % (Auto) 6.0, Eos % (Auto) 1.1, Baso % (Auto) 0.3, Neut # (Auto) 5.0, Lymph # (Auto) 1.2, [place] # (Auto) 0.4, Eos # (Auto) 0.1, Baso # (Auto) 0.0, Sodium 137, Potassium 3.6, Chloride 105, Carbon Dioxide 22, Anion Gap 13.6, BUN 10, Creatinine 0.60, Estimated Creat Clear 127, Estimated GFR 117, Est GFR ( Amer) 141, Glucose 83, Calcium 8.2 L, Total Bilirubin 0.9, AST 53 H D, ALT 27 D, Alkaline Phosphatase 52, Total Protein 6.1 L, Albumin 3.4 L, Globulin 2.7, Albumin/Globulin Ratio 1.3 I & O for Last 24 hours: Intake & Output 04/19/24 04/20/24 04/21/24 04/22/24 23:59 23:59 23:59 23:59 Intake Total 2281 / 2281 Output Total 1695 / 1695 400 / 400 0 / 0 Balance 586 / 586 -400 / -400 0 / 0 Weight 54.431 kg 58.922 kg 58.992 kg Constitutional Constitutional: no acute distress and disheveled *Routine HEENT Exam Head: Present normocephalic Eye: Present EOMI and PERRL ENT: Present mucous membranes moist *Routine Neck Exam Neck: Present supple; Absent lymphadenopathy *Routine Respiratory Exam Respiratory: Present CTA bilaterally *Routine Cardiovascular Exam Cardiovascular: Present RRR *Routine Abdominal Exam Abdominal: Present soft, normoactive bowel sounds and tenderness Comments: Dressing in place *Routine Extremities Exam Extremities: Absent cyanosis, clubbing or edema *Routine Skin Exam Skin: Present warm; Absent rash *Routine Neurological Exam Neurological: Present alert and oriented X3 Assessment and Plan *Assessment and plan (1) Cecal volvulus: Status: Acute Category: Medical Code(s): K56.2 - Volvulus (2) COVID-19: Status: Acute Category: Medical Code(s): U07.1 - COVID-19 Plan Admit to medicine #Cecal volvulus Dr Atkinson consulted and will take patient to OR for exploratory laparotomy. S/p ex-lap with right elton-colectomy Has not passed gas yet. KUB today suggestive of mild ileus, however bowel sounds much more active today. Electrolytes stable. Surgery following, recommended removing NG tube and remaining n.p.o. but with ice chips. Continue maintenance fluids. Ambulated around the floor today. #COVID-19 Reported positive test at home. Has been asymptomatic. Will defer COVID directed therapies at this time as patient remained stable.
[2024-04-22 16:42] LABS: Microscopic, Urine URINE MICROSCOPIC (MICROSCOPIC)
[2024-04-22 16:54] LABS: Appearance,Urine CLEAR (Clear); Bilirubin,Urine Negative (Negative); Blood, Urine 2+ (Negative); Color,Urine YELLOW (Yellow); Glucose,Urine (UA) Negative (Negative); Ketones,Urine 3+ (Negative); Leukocyte Esterase,Urine Negative (Negative); Nitrate,Urine Negative (Negative); Protein,Urine Negative (Negative); Specific Gravity, Urine 1.025 (1.005-1.030); Urobilinogen,Urine 0.2 EU/dl (0.2)
[2024-04-22 17:23] LABS: Bacteria,Urine Trace /lpf; RBC,Urine Occasional #/hpf (0-3)
--- NOTE | 2024-04-22 18:42 | PC.NURSE ---
6.5 mg morphine cleared from CHILD SUPPORT SPECIALIST
[2024-04-22] MEDS: PANTOPRAZOLE 40MG VIAL 40 MG IV (20:18)
[2024-04-23] VITALS (12 sets, daily range): BP systolic 122–143; BP diastolic 70–91; PULSE 61–80; RESP 14–19; TEMP 36.6–37.1; O2SAT 98–100; BMI 20.9
--- NOTE | 2024-04-23 05:21 | PC.NURSE ---
Patient has had a good night. She has had no complaints. Did walk around in the hallway and in the room and sat up in the chair until 2300. Patient does stated she has passed gas multiple times this shift and continues to burp. No other complaints family at bedside
[2024-04-23] MEDS: LACTATED RINGERS 1000ML 1,000 ML 100 ML IV ×2 (05:54→17:33)
[2024-04-23] MEDS: MORPHINE 10MG/ML 30ML PCA IV (06:06)
[2024-04-23 06:56] LABS: Basophils % 0.3 % (0.1-2.0); Eosinophils # 0.1 K/mm3 (0.0-0.4); Eosinophils % 1.6 % (0.1-12.0); Hematocrit 32.4 % (37.0-47.0); Hemoglobin 11.2 g/dL (12.2-16.2); Lymphocytes # 1.1 K/mm3 (0.7-4.5); Lymphocytes % 15.9 % (10-50); Mean Corpuscular HGB Conc 34.5 g/dL (31.8-35.4); Mean Corpuscular Hemoglobin 30.5 pg (27.0-31.2); Mean Corpuscular Volume 88.6 fl (81-99); Monocytes # 0.5 K/mm3 (0.1-1.0); Monocytes % 7.8 % (1.7-9.3); Neutrophils # 5.1 K/mm3 (1.8-7.8); Neutrophils % 74.3 % (37.0-80.0); Platelet Count 287 K/mm3 (142-424); Red Blood Count 3.66 M/mm3 (4.20-5.40); Red Cell Distribution Width 11.8 % (11.5-17.5); White Blood Count 6.8 K/mm3 (4.8-10.8)
[2024-04-23 07:02] LABS: Anion Gap 12.6 mEq/L (5-15); Blood Urea Nitrogen 9 mg/dl (7-17); Calcium 7.6 mg/dl (8.4-10.2); Carbon Dioxide 21 mmol/L (22.0-30.0); Chloride 107 mmol/L (98-107); Creatinine Clearance Estimated 143 mL/min (50-200); Estimated Glomerular Filt Rate 144 ml/min (>60); GFR (African American) 174 ML/MIN (>60); Glucose 73 mg/dl (74-100); Potassium 3.6 mmoL/L (3.5-5.1); Sodium 137 mmol/L (136-145)
[2024-04-23 07:16] LABS: Magnesium 1.8 mg/dl (1.6-2.3)
--- NOTE | 2024-04-23 09:55 | P.PN_ITS ---
Subjective Narrative: Patient tolerated nasogastric tube out. No nausea. But she did have some intermittent bloating followed by relief with belching. She does state that she has passed some minimal gas. Pain controlled with very minimal low-dose CORONARY CLINICAL SPECIALIST. Patient states that she is unable to swallow pills. Exam Data for Last 24 hours Vital signs and Labs for Last 24 Hours: Temp Pulse Resp BP Pulse Ox O2 Del Method 98.0 F 80 18 123/72 98 Room Air 04/23/24 08:00 04/23/24 08:00 04/23/24 08:00 04/23/24 08:00 04/23/24 08:00 04/23/24 09:00 Laboratory Results - last 24 hr 04/22/24 16:17: Urine Color Yellow, Urine Appearance Clear, Urine pH 6.0, Ur Specific [place] 1.025, Urine Protein Negative, Urine Glucose (UA) Negative, Urine Ketones 3+, Urine Blood 2+ A, Urine Nitrate Negative, Urine Bilirubin Negative, Urine Urobilinogen 0.2, Ur Leukocyte Esterase Negative, Urine RBC Occasional, Urine WBC 3-5, Ur Squamous Epith Cells 5-10, Urine Bacteria Trace 04/23/24 06:36: WBC 6.8, RBC 3.66 L, Hgb 11.2 L, Hct 32.4 L, MCV 88.6, MCH 30.5, MCHC 34.5, RDW 11.8, Plt Count 287, MPV 8.0, Neut % (Auto) 74.3, Lymph % (Auto) 15.9, [place] % (Auto) 7.8, Eos % (Auto) 1.6, Baso % (Auto) 0.3, Neut # (Auto) 5.1, Lymph # (Auto) 1.1, [place] # (Auto) 0.5, Eos # (Auto) 0.1, Baso # (Auto) 0.0, Sodium 137, Potassium 3.6, Chloride 107, Carbon Dioxide 21 L, Anion Gap 12.6, BUN 9, Creatinine 0.50 L, Estimated Creat Clear 143, Estimated GFR 144, Est GFR ( Amer) 174 D, Glucose 73 L, Calcium 7.6 L, Magnesium 1.8 I & O for Last 24 hours: Intake & Output 04/20/24 04/21/24 04/22/24 04/23/24 11:59 11:59 11:59 10:59 Intake Total 1800 / 1800 481 / 481 4494 / 4494 Output Total 175 / 175 1920 / 1920 0 / 0 1500 / 1500 Balance 1625 / 1625 -1439 / -1439 0 / 0 2994 / 2994 Weight 120 lb 129 lb 14.4 oz 130 lb 0.881 oz 122 lb 14.4 oz *Routine Abdominal Exam Abdominal: Present soft Comments: Incision clean with some bruising. Progress Note: A&P Assessment and plan (1) Cecal volvulus: Status: Acute Assessment and plan: Postoperative day #3. May have some sips of clear liquids. (2) COVID-19: Status: Acute
--- NOTE | 2024-04-23 14:01 | P.PN_ITS ---
Subjective *Date: 04/23/24 *Time: 14:01 Interval history: Patient feels much better today. Having normal bowel sounds, passing gas. Exam Data for Last 24 hours Vital signs and Labs for Last 24 Hours: Temp Pulse Resp BP Pulse Ox O2 Del Method 98.1 F 66 18 123/80 100 Room Air 04/23/24 12:00 04/23/24 12:00 04/23/24 12:00 04/23/24 12:00 04/23/24 12:00 04/23/24 12:00 Laboratory Results - last 24 hr 04/22/24 16:17: Urine Color Yellow, Urine Appearance Clear, Urine pH 6.0, Ur Specific [place] 1.025, Urine Protein Negative, Urine Glucose (UA) Negative, Urine Ketones 3+, Urine Blood 2+ A, Urine Nitrate Negative, Urine Bilirubin Negative, Urine Urobilinogen 0.2, Ur Leukocyte Esterase Negative, Urine RBC Occasional, Urine WBC 3-5, Ur Squamous Epith Cells 5-10, Urine Bacteria Trace 04/23/24 06:36: WBC 6.8, RBC 3.66 L, Hgb 11.2 L, Hct 32.4 L, MCV 88.6, MCH 30.5, MCHC 34.5, RDW 11.8, Plt Count 287, MPV 8.0, Neut % (Auto) 74.3, Lymph % (Auto) 15.9, [place] % (Auto) 7.8, Eos % (Auto) 1.6, Baso % (Auto) 0.3, Neut # (Auto) 5.1, Lymph # (Auto) 1.1, [place] # (Auto) 0.5, Eos # (Auto) 0.1, Baso # (Auto) 0.0, Sodium 137, Potassium 3.6, Chloride 107, Carbon Dioxide 21 L, Anion Gap 12.6, BUN 9, Creatinine 0.50 L, Estimated Creat Clear 143, Estimated GFR 144, Est GFR ( Amer) 174 D, Glucose 73 L, Calcium 7.6 L, Magnesium 1.8 I & O for Last 24 hours: Intake & Output 04/20/24 04/21/24 04/22/24 04/23/24 23:59 23:59 23:59 22:59 Intake Total 2281 / 2281 4494 / 4494 240 / 240 Output Total 1695 / 1695 400 / 400 700 / 700 1400 / 1400 Balance 586 / 586 -400 / -400 3794 / 3794 -1160 / -1160 Weight 58.922 kg 58.992 kg 55.747 kg Constitutional Constitutional: no acute distress and disheveled *Routine HEENT Exam Head: Present normocephalic Eye: Present EOMI and PERRL ENT: Present mucous membranes moist *Routine Neck Exam Neck: Present supple; Absent lymphadenopathy *Routine Respiratory Exam Respiratory: Present CTA bilaterally *Routine Cardiovascular Exam Cardiovascular: Present RRR *Routine Abdominal Exam Abdominal: Present soft, normoactive bowel sounds and tenderness Comments: Incision clean, dry, intact. *Routine Extremities Exam Extremities: Absent cyanosis, clubbing or edema *Routine Skin Exam Skin: Present warm; Absent rash *Routine Neurological Exam Neurological: Present alert and oriented X3 Assessment and Plan *Assessment and plan (1) Cecal volvulus: Status: Acute Category: Medical Code(s): K56.2 - Volvulus (2) COVID-19: Status: Acute Category: Medical Code(s): U07.1 - COVID-19 Plan Admit to medicine #Cecal volvulus S/p ex-lap with right elton-colectomy 04/20/2024 Patient feels much better today. Having normal bowel sounds, passing gas. Hemoglobin, electrolytes stable. Surgery following, recommended advancing to liquids with sips today. Dressing removed. Incision clean, dry, intact. Continue maintenance fluids. Ambulating well. No nausea/vomiting. #COVID-19 Reported positive test at home. Has been asymptomatic. Will defer COVID directed therapies at this time as patient remainsstable.
--- NOTE | 2024-04-23 18:12 | PC.NURSE ---
pt is a/ox4 tolerating RA well. she is still passing flatus. no BM. she has tolerated a clear liquid diet well. no complaints. she has ambulated in the room and in the hallway via stand by assist from . tolerated well. pt is sitting up in the chair, family at bedside, call light within reach.
--- NOTE | 2024-04-23 18:52 | PC.NURSE ---
6.1 mg morphine cleared from ANIMAL CRUELTY INVESTIGATION SUPERVISOR pump.
[2024-04-23] MEDS: PANTOPRAZOLE 40MG VIAL 40 MG IV (20:47)
[2024-04-24] VITALS (9 sets, daily range): BP systolic 114–142; BP diastolic 68–88; PULSE 60–98; RESP 14–18; TEMP 36.7–37.2; O2SAT 95–100; BMI 20.4
[2024-04-24] MEDS: LACTATED RINGERS 1000ML 1,000 ML 100 ML IV (04:02)
--- NOTE | 2024-04-24 04:31 | PC.NURSE ---
29 yo female pt is A/O X 4. She has been ambulating to the BR with assist of 1 and tolerating well. Pt has also ambulated down the hallway this shift. She is passing gas, BS + X 4 but no BM yet. Pt tolerating clear liquid diet.
--- NOTE | 2024-04-24 06:25 | P.PN_ITS ---
Subjective Narrative: Patient is without significant complaints. She has been ambulating. Minimal use of RHINESTONE SETTER. Drank about two thirds of an apple juice. Minor nausea. However, she is passing gas. Exam Data for Last 24 hours Vital signs and Labs for Last 24 Hours: Temp Pulse Resp BP Pulse Ox O2 Del Method 98.7 F 63 18 128/77 97 Room Air 04/24/24 04:00 04/24/24 04:00 04/24/24 04:00 04/24/24 04:00 04/24/24 04:00 04/24/24 05:00 Laboratory Results - last 24 hr 04/23/24 06:36: WBC 6.8, RBC 3.66 L, Hgb 11.2 L, Hct 32.4 L, MCV 88.6, MCH 30.5, MCHC 34.5, RDW 11.8, Plt Count 287, MPV 8.0, Neut % (Auto) 74.3, Lymph % (Auto) 15.9, [place] % (Auto) 7.8, Eos % (Auto) 1.6, Baso % (Auto) 0.3, Neut # (Auto) 5.1, Lymph # (Auto) 1.1, [place] # (Auto) 0.5, Eos # (Auto) 0.1, Baso # (Auto) 0.0, Sodium 137, Potassium 3.6, Chloride 107, Carbon Dioxide 21 L, Anion Gap 12.6, BUN 9, Creatinine 0.50 L, Estimated Creat Clear 143, Estimated GFR 144, Est GFR ( Amer) 174 D, Glucose 73 L, Calcium 7.6 L, Magnesium 1.8 I & O for Last 24 hours: Intake & Output 04/21/24 04/22/24 04/23/24 04/24/24 11:59 11:59 10:59 11:59 Intake Total 481 / 481 4494 / 4494 2994 / 2994 Output Total 1920 / 1920 0 / 0 2100 / 2100 1450 / 1450 Balance -1439 / -1439 0 / 0 2394 / 2394 1544 / 1544 Weight 129 lb 14.4 oz 130 lb 0.881 oz 122 lb 14.4 oz 119 lb 9.6 oz *Routine Abdominal Exam Abdominal: Present soft Comments: Incision with resolving bruising. Progress Note: A&P Assessment and plan (1) Cecal volvulus: Status: Acute Assessment and plan: Postoperative day #4. I will go ahead and write for clear liquid diet. I explained to her that if she develops bloating or nausea to decrease oral intake. (2) COVID-19: Status: Acute
[2024-04-24 06:28] LABS: Basophils % 0.4 % (0.1-2.0); Eosinophils # 0.2 K/mm3 (0.0-0.4); Eosinophils % 2.5 % (0.1-12.0); Hematocrit 32.1 % (37.0-47.0); Hemoglobin 11.1 g/dL (12.2-16.2); Lymphocytes # 1.3 K/mm3 (0.7-4.5); Lymphocytes % 21.1 % (10-50); Mean Corpuscular HGB Conc 34.6 g/dL (31.8-35.4); Mean Corpuscular Hemoglobin 30.4 pg (27.0-31.2); Mean Corpuscular Volume 87.7 fl (81-99); Mean Platelet Volume 7.9 fl (7.4-10.4); Monocytes # 0.5 K/mm3 (0.1-1.0); Monocytes % 7.4 % (1.7-9.3); Neutrophils # 4.2 K/mm3 (1.8-7.8); Neutrophils % 68.7 % (37.0-80.0); Platelet Count 354 K/mm3 (142-424); Red Blood Count 3.66 M/mm3 (4.20-5.40); White Blood Count 6.1 K/mm3 (4.8-10.8)
[2024-04-24 07:06] LABS: Anion Gap 13.5 mEq/L (5-15); Blood Urea Nitrogen 6 mg/dl (7-17); Calcium 7.8 mg/dl (8.4-10.2); Carbon Dioxide 19 mmol/L (22.0-30.0); Chloride 108 mmol/L (98-107); Creatinine Clearance Estimated 140 mL/min (50-200); Estimated Glomerular Filt Rate 144 ml/min (>60); GFR (African American) 174 ML/MIN (>60); Glucose 76 mg/dl (74-100); Potassium 3.5 mmoL/L (3.5-5.1); Sodium 137 mmol/L (136-145)
[2024-04-24 07:35] LABS: Magnesium 1.9 mg/dl (1.6-2.3)
--- NOTE | 2024-04-24 08:17 | DIET.NUTRFU ---
Patient has been NPO now advanced to clear liquids since admit on 04/20. She is post cecal volvulus sx, followed by sx team. Gas was noted, some nausea still noted but better. Patient is receiving lactated ringers for hydration, labs reviewed. We continue to monitor for diet advancement, she is at risk for malnutrition if continues on clear liquid diet.
--- NOTE | 2024-04-24 09:25 | PC.NURSE ---
FLAG FOOTBALL COACH PUMP AND IVF'S DC'D. 2 MG CLEARED FROM FLAG FOOTBALL COACH PUMP. PT HAS BEEN ENCOURAGED TO AMBULATE. PASSING FLATUS.
--- NOTE | 2024-04-24 15:41 | PC.NURSE ---
Addendum entered by Monica Conn RN 04/24/24 19:20: pt had a small loose bm this evening. Original Note: PT IS SITTING UP IN THE CHAIR. ALERT AND ORIENTED X4. TOLERATING CLEAR LIQUIDS. LUNG SOUNDS CLEAR. ABDOMEN SOFT/TENDER WITH MIDLINE INCISION OPEN TO AIR. ACTIVE BOWEL SOUNDS. PT HAS AMBULATED IN THE AVERY AND TO THE BATHROOM. VSS. WILL CONTINUE TO MONITOR.
[2024-04-24] MEDS: PANTOPRAZOLE 40MG VIAL 40 MG IV (20:16)
[2024-04-24] MEDS: SODIUM CHLORIDE 0.9% 10ML VIAL 10 ML IV (20:16)
--- NOTE | 2024-04-24 22:33 | P.PN_ITS ---
Subjective *Date: 04/24/24 *Time: 22:33 Interval history: Doing wel today, tolerating CLD. Passing gas and had a bowel movement. Exam Data for Last 24 hours Vital signs and Labs for Last 24 Hours: Temp Pulse Resp BP Pulse Ox O2 Del Method 98.7 F 82 16 114/77 100 Room Air 04/24/24 19:54 04/24/24 20:00 04/24/24 20:00 04/24/24 19:54 04/24/24 20:00 04/24/24 21:00 Laboratory Results - last 24 hr 04/24/24 05:43: WBC 6.1, RBC 3.66 L, Hgb 11.1 L, Hct 32.1 L, MCV 87.7, MCH 30.4, MCHC 34.6, RDW 12.0, Plt Count 354, MPV 7.9, Neut % (Auto) 68.7, Lymph % (Auto) 21.1, [place] % (Auto) 7.4, Eos % (Auto) 2.5, Baso % (Auto) 0.4, Neut # (Auto) 4.2, Lymph # (Auto) 1.3, [place] # (Auto) 0.5, Eos # (Auto) 0.2, Baso # (Auto) 0.0, Sodium 137, Potassium 3.5, Chloride 108 H, Carbon Dioxide 19 L, Anion Gap 13.5, BUN 6 L D, Creatinine 0.50 L, Estimated Creat Clear 140, Estimated GFR 144, Est GFR ( Amer) 174, Glucose 76, Calcium 7.8 L, Magnesium 1.9 I & O for Last 24 hours: Intake & Output 04/21/24 04/22/24 04/23/24 04/24/24 23:59 23:59 22:59 23:59 Intake Total 4494 / 4494 2494 / 2994 980 / 980 Output Total 400 / 400 700 / 700 2250 / 2850 600 / 600 Balance -400 / -400 3794 / 3794 244 / 144 380 / 380 Weight 58.922 kg 58.992 kg 55.747 kg 54.25 kg Constitutional Constitutional: no acute distress and disheveled *Routine HEENT Exam Head: Present normocephalic Eye: Present EOMI and PERRL ENT: Present mucous membranes moist *Routine Neck Exam Neck: Present supple; Absent lymphadenopathy *Routine Respiratory Exam Respiratory: Present CTA bilaterally *Routine Cardiovascular Exam Cardiovascular: Present RRR *Routine Abdominal Exam Abdominal: Present soft, normoactive bowel sounds and tenderness Comments: Incision clean, dry, intact. *Routine Extremities Exam Extremities: Absent cyanosis, clubbing or edema *Routine Skin Exam Skin: Present warm; Absent rash *Routine Neurological Exam Neurological: Present alert and oriented X3 Assessment and Plan *Assessment and plan (1) Cecal volvulus: Status: Acute Category: Medical Code(s): K56.2 - Volvulus (2) COVID-19: Status: Acute Category: Medical Code(s): U07.1 - COVID-19 Plan Admit to medicine #Cecal volvulus S/p ex-lap with right elton-colectomy 04/20/2024 Patient continues to feel today, in good spirits. Weaned off REPAIRER SCREEN CRUSHER pump. Having normal bowel sounds, passing gas, and had a bowel movement today. Hemoglobin, electrolytes stable. Surgery following, recommended advancing to CLD today. Possibly FLD tomorrow. Ambulating well. No nausea/vomiting. #COVID-19 Reported positive test at home. Has been asymptomatic. Will defer COVID directed therapies at this time as patient remains stable.
--- NOTE | 2024-04-24 23:03 | PC.NURSE ---
Addendum entered by Verona Gilmore RN 04/24/24 23:22: Attempted to give patient Tylenol tablet; patient refused and stated that she cannot take pills right now. Dr Burton was paged at 23:17 to request a different form of Tylenol. An elixir was ordered to be given. Addendum entered by Verona Gilmore RN 04/24/24 23:07: Tylenol 500mg PO every 6 hours PRN was ordered. Original Note: Checked on the patient at around 23:00. The patient stated that she was starting to have a headache (level 2 or 3) and requested for a mild pain medication. She did not have anything in the [facility] for mild pain currently (only [place] tablets for moderate/severe pain were ordered). Dr Burton was paged at this time per request and her headache.
[2024-04-24] MEDS: ACETAMINOPHEN 325MG/10.15ML UDC 240 MG PO (23:25)
[2024-04-25] VITALS: BP 118/68; PULSE 61; RESP 16; TEMP 36.9; O2SAT 100
[2024-04-25 04:00] VITALS: BP 122/74; PULSE 85; RESP 16; TEMP 36.9; O2SAT 96; BMI 19.5
--- NOTE | 2024-04-25 04:53 | PC.NURSE ---
Patient has been quite alert, states she is much more coherent, and pleasant this shift. Earlier this shift (evening), the patient ambulated around the hallway with her and tolerated it well. She has also been up to the chair and ambulates in her room with no issues. Regarding pain this shift, she complained of some soreness in her abdomen and a mild headache once. She did not request any pain medication for her abdomen, but requested medication for her headache. A Tylenol elixir was given (see prior note); patient requested not to take any PO pills and does not do well with them. She was given IV Protonix per MAR this shift. Upon auscultation, patient's lung sounds were clear, S1/S2 heart sounds could be heard, and bowel sounds were active. However, patient stated that she has not had any urges to defecate this shift; she continues to occasionally pass gas. Her midline incision remains open to air and intact. Fresh ice water and ice chips were given to her at bedtime. She remained on a clear liquid diet. Vital signs have been stable this shift. At this time, the patient does not have any further complaints. She is currently resting in bed with eyes closed, respirations even and unlabored on room air, and no apparent distress. Her has remained at bedside through the night. No acute changes noted thus far. Call light within reach.
--- NOTE | 2024-04-25 06:47 | PC.NURSE ---
Dr Atkinson at bedside consulting with patient.
[2024-04-25 07:01] LABS: Eosinophils # 0.2 K/mm3 (0.0-0.4); Lymphocytes # 1.4 K/mm3 (0.7-4.5)
[2024-04-25 07:17] LABS: Anion Gap 10.1 mEq/L (5-15); Blood Urea Nitrogen 7 mg/dl (7-17); Carbon Dioxide 19 mmol/L (22.0-30.0); Chloride 108 mmol/L (98-107); Creatinine Clearance Estimated 167 mL/min (50-200); Estimated Glomerular Filt Rate 186 ml/min (>60); GFR (African American) 225 ML/MIN (>60); Glucose 82 mg/dl (74-100); Potassium 3.1 mmoL/L (3.5-5.1); Sodium 134 mmol/L (136-145)
--- NOTE | 2024-04-25 07:24 | EXP.SURG.PN ---
Subjective Patient reports: no new complaints, feels better, tolerating liquids well, flatus and bowel movement Exam Data for Last 24 hours Vital signs and Labs for Last 24 Hours: Temp Pulse Resp BP Pulse Ox O2 Del Method 98.4 F 85 16 122/74 96 Room Air 04/25/24 04:00 04/25/24 04:00 04/25/24 04:00 04/25/24 04:00 04/25/24 04:00 04/25/24 06:40 Laboratory Results - last 24 hr 04/24/24 05:43: Magnesium 1.9 I & O for Last 24 hours: Intake & Output 04/22/24 04/23/24 04/24/24 04/25/24 11:59 10:59 11:59 11:59 Intake Total 4494 / 4494 2994 / 2994 680 / 680 Output Total 0 / 0 2100 / 2100 1450 / 1450 0 / 0 Balance 0 / 0 2394 / 2394 1544 / 1544 680 / 680 Weight 130 lb 0.881 oz 122 lb 14.4 oz 119 lb 9.6 oz 114 lb 8 oz Constitutional Constitutional: no acute distress *Routine Respiratory Exam Respiratory: Absent respiratory distress *Routine Cardiovascular Exam Cardiovascular: Absent tachycardia *Routine Abdominal Exam Abdominal: Present soft Comments: Incision clean, dry, and intact. No erythema. Progress Note: A&P Assessment and plan (1) Cecal volvulus: Status: Acute Assessment and plan: Overall, doing well status post ex-lap with right elton-colectomy. Full liquid diet Remove one half of aneta Possible discharge home later today
[2024-04-25 07:25] LABS: Magnesium 1.9 mg/dl (1.6-2.3)
[2024-04-25 07:31] LABS: Basophils % 0.6 % (0.1-2.0); Hematocrit 33.2 % (37.0-47.0); Hemoglobin 11.5 g/dL (12.2-16.2); Lymphocytes % 23.5 % (10-50); Mean Corpuscular HGB Conc 34.5 g/dL (31.8-35.4); Mean Corpuscular Hemoglobin 29.5 pg (27.0-31.2); Mean Corpuscular Volume 85.5 fl (81-99); Mean Platelet Volume 7.9 fl (7.4-10.4); Monocytes # 0.5 K/mm3 (0.1-1.0); Monocytes % 8.6 % (1.7-9.3); Neutrophils # 3.7 K/mm3 (1.8-7.8); Neutrophils % 63.3 % (37.0-80.0); Platelet Count 385 K/mm3 (142-424); Red Blood Count 3.89 M/mm3 (4.20-5.40); Red Cell Distribution Width 12.2 % (11.5-17.5); White Blood Count 5.9 K/mm3 (4.8-10.8)
[2024-04-25 08:00] VITALS: BP 118/60; PULSE 62; RESP 18; TEMP 36.8; O2SAT 96
[2024-04-25 11:52] VITALS: BP 108/72; PULSE 90; RESP 16; TEMP 36.8; O2SAT 98
--- NOTE | 2024-04-25 13:35 | P.DS_ITS ---
General Admission date:: 04/20/24 Discharge date: 04/25/24 HPI HPI HPI: This is a 29-year-old female who presents to the emergency department for evaluation regarding abdominal pain. A CT scan was obtained and revealed changes consistent with cecal volvulus. Currently her pain has improved. She has remained afebrile with stable normal vital signs. Of note, she is COVID-positive. Reports being sick last week but has been managing symptoms at home and has been feeling okay. She reports suddenly this evening starting to have pelvic abdominal pain that felt like gas. She did take Gas-X without any relief. She did have a episode of vomiting. States the pain is intermittent and comes in waves. States that she is not sexually active. Hospital Course Hospital Course Hospital Course: 29-year-old female with mild hypothyroidism and seasonal allergies who presented with abdominal pain. Patient found to have cecal volvulus. Surgery consulted, status post right hemicolectomy on 04/20. Has improved as anticipated. Able to advance diet. Patient having bowel movements and tolerating p.o. intake. Stable to discharge home with close surgical follow-up. 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 Patient continues to feel better on day of discharge. Has done well for over 24 hours without opiate pain medications. Tolerating full liquid diet. Having bowel movements for over 24 hours with passing of flatus. White cell count and electrolytes remain normal. Mild anemia with hemoglobin of 11 due to postsurgical change but no active signs of bleeding. Discussed case with surgery, given patient's tolerance of p.o. intake, passing flatus, having bowel movements, stable to discharge home. Recommend ibuprofen or Tylenol as patient has not needed opiates in over 24 hours. Prefers chewable tablets, has a hard time swallowing pills. Medication sent to pharmacy for outpatient need. Follow-up with surgery in the next week. Half of aneta removed on day of discharge. #COVID-19 Reported positive test at home. Has been asymptomatic. No respiratory distress or cough during admission. Exam Data for Last 24 hours Vital signs and Labs for Last 24 Hours: Temp Pulse Resp BP Pulse Ox O2 Del Method 98.2 F 90 16 108/72 L 98 Room Air 04/25/24 11:52 04/25/24 11:52 04/25/24 11:52 04/25/24 11:52 04/25/24 11:52 04/25/24 13:00 Laboratory Results - last 24 hr 04/25/24 05:58: WBC 5.9, RBC 3.89 L, Hgb 11.5 L, Hct 33.2 L, MCV 85.5, MCH 29.5, MCHC 34.5, RDW 12.2, Plt Count 385, MPV 7.9, Neut % (Auto) 63.3, Lymph % (Auto) 23.5, [place] % (Auto) 8.6, Eos % (Auto) 4.0, Baso % (Auto) 0.6, Neut # (Auto) 3.7, Lymph # (Auto) 1.4, [place] # (Auto) 0.5, Eos # (Auto) 0.2, Baso # (Auto) 0.0, Sodium 134 L, Potassium 3.1 L, Chloride 108 H, Carbon Dioxide 19 L, Anion Gap 10.1, BUN 7, Creatinine 0.40 L, Estimated Creat Clear 167, Estimated GFR 186, Est GFR ( Amer) 225 D, Glucose 82, Calcium 8.0 L, Magnesium 1.9 I & O for Last 24 hours: Intake & Output 04/22/24 04/23/24 04/24/24 04/25/24 23:59 22:59 23:59 23:59 Intake Total 4494 / 4494 2494 / 2994 980 / 1180 410 / 410 Output Total 700 / 700 2250 / 2850 600 / 600 0 / 0 Balance 3794 / 3794 244 / 144 380 / 580 410 / 410 Weight 58.992 kg 55.747 kg 54.25 kg 51.936 kg Constitutional Constitutional: no acute distress, thin and cooperative *Routine HEENT Exam Head: Present normocephalic Eye: Present EOMI and PERRL ENT: Present mucous membranes moist *Routine Neck Exam Neck: Present supple; Absent lymphadenopathy *Routine Respiratory Exam Respiratory: Present CTA bilaterally; Absent rhonchi, wheezes or crackles *Routine Cardiovascular Exam Cardiovascular: Present RRR *Routine Abdominal Exam Abdominal: Present soft, normoactive bowel sounds and tenderness (minimal around incision.) Comments: midline incision CDI, no drainage, 1/2 aneta removed with placement of steri- strips. *Routine Rectal Exam Patient deferred: visual exam *Routine Exam Patient deferred: external exam *Routine Extremities Exam Extremities: Absent cyanosis, clubbing or edema *Routine Skin Exam Skin: Present warm; Absent rash *Routine Neurological Exam Neurological: Present alert, oriented X3 and moving all extremities; Absent altered mental status Results Data Completed and Pending Labs on day of discharge: Labs from last 24 hours 04/25/24 05:58 WBC 5.9 RBC 3.89 L Hgb 11.5 L Hct 33.2 L MCV 85.5 MCH 29.5 MCHC 34.5 RDW 12.2 Plt Count 385 MPV 7.9 Neut % (Auto) 63.3 Lymph % (Auto) 23.5 [place] % (Auto) 8.6 Eos % (Auto) 4.0 Baso % (Auto) 0.6 Neut # (Auto) 3.7 Lymph # (Auto) 1.4 [place] # (Auto) 0.5 Eos # (Auto) 0.2 Baso # (Auto) 0.0 Sodium 134 L Potassium 3.1 L Chloride 108 H Carbon Dioxide 19 L Anion Gap 10.1 BUN 7 Creatinine 0.40 L Estimated Creat Clear 167 Estimated GFR 186 Est GFR ( Amer) 225 D Glucose 82 Calcium 8.0 L Magnesium 1.9 DS: Diagnosis Discharge Diagnosis (1) Cecal volvulus: Status: Acute Code(s): K56.2 - Volvulus Meds Home Medications and Allergies Home Medications ?Medication ?Instructions ?Recorded ?Confirmed ?Type cetirizine 10 mg chewable tablet 10 mg PO DAILY 04/20/24 04/20/24 History (Zyrtec) levothyroxine 25 mcg tablet 12.5 mcg PO DAILY 04/20/24 04/20/24 History acetaminophen 325 mg chewable 650 mg (2 x 325 mg) PO Q6H PRN 04/25/24 Rx tablet pain #120 tabs ibuprofen 100 mg chewable tablet 600 mg (6 x 100 mg) PO Q6H PRN 04/25/24 Rx (Ibuprofen IB) pain #120 tabs New Prescriptions to Start Prescriptions: acetaminophen Mike Puckett ibuprofen [Ibuprofen IB] Mike Puckett Allergies Allergy/AdvReac Type Severity Reaction Status Date / Time No Known Allergies Allergy Verified 04/19/24 20:21 Discharge Plan Disposition Patient Disposition: Home, Self-Care Condition: Good Discharge Order Discharge Orders: Discharge Order (Routine); Ordered 04/25/24 Ordered By: Mike Puckett Follow up Plan Follow up with: Luisa Grove MD [Primary Care Provider] - Enter time for follow up (please call for appointment) Steve Atkinson MD [Staff Physician] - 04/28/24 1:00 pm Prescriptions/Medication Reconciliation: New acetaminophen 325 mg tablet,chewable 650 mg PO Q6H PRN (Reason: pain) Qty: 120 0RF ibuprofen [Ibuprofen IB] 100 mg tablet,chewable 600 mg PO Q6H PRN (Reason: pain) Qty: 120 0RF Continued cetirizine [Zyrtec] 10 mg Tablet,Chewable 10 mg PO DAILY levothyroxine 25 mcg tablet 12.5 mcg PO DAILY Problem Reconciliation Problems Reviewed?: Yes Patient Discharge Instructions ACTIVITY: Ambulate as tolerated and No heavy lifting DIET: advance to your usual diet Stand Alone Forms: [facility] Work Release Patient Instructions: DI for Exploratory Laparotomy, DI for Surgical Site Infection, DI for Volvulus Repair-Adult, DI for COVID-19 (Suspected or Confirmed ), Catheter-Associated Urinary Tract Infection Print Language: Albanian Providers Primary Care Provider: Luisa Grove Admit Provider: Stuart Mata Attending Provider: Stuart Mata
--- NOTE | 2024-04-26 14:38 | CARE MANAGER ---
Contacted patient related to hospital discharge. She states she is feeling well and has medications. She has follow up appointment with Dr. Atkinson and PCP. Denies questions or concerns. JANNA Wiggins
== END 2024-04-25 15:22 | disposition home or self-care (01) | DRG 329 ==
LOC: ER 20:30 → 2ND 04-20 04:18
PROVIDERS: Nurse Practitioner Acute Care; Surgery; Admitting Provider Student in an Organized Health Care Education/Training Program; Emergency Provider Emergency Medicine; PCP Emergency Medicine; Visit Provider Student in an Organized Health Care Education/Training Program
PROC: 0DTF0ZZ Resection of Right Large Intestine, Open Approach (ICD-10-PCS; CPT 49000; principal; 2024-04-20 00:15)
DX: K56.2 Volvulus (principal); U07.1 COVID-19
CPT/HCPCS: 36415; 74018; 74177; 80048; 80053; 81001; 83690; 83735; 84100; 84703; 85007; 85025; 99285; J3490; J1100; J1595; J1885; J2250; J2270; J2405; J2543; J2550; J3010; J7120; Q9967

== ENCOUNTER 2025-05-03 15:10 | Outpatient (CLI) | payer BC, SELFPAY ==
--- OUTSIDE RECORDS SUMMARY | 2025-05-03 15:13 | XMS_ITS | Clinical Summary ---
Author Organization [facility] Address [address] [place] [address] Care Team Providers Care Sharepoint Web Developer Name Role Phone Luisa Grove MD Primary Care Provider [phone] Allergies Active Allergy Reactions Criticality Noted Date Comments Erythromycin Other (See Comments) Low 11/12/2015 D Medications cetirizine (ZyrTEC) 10 MG tablet Take 1 tablet by mouth Daily. Active mometasone (NASONEX) 50 MCG/ACT nasal spray Administer 2 sprays into the nostril(s) as directed by provider Daily. Active VITAMIN C, CALCIUM ASCORBATE, PO Take by mouth. A ctive Multiple Vitamin (MULTI VITAMIN DAILY PO) Take by mouth. Activ e Probiotic Product (PROBIOTIC & ACIDOPHILUS EX ST PO) Take by mouth. Activ e levothyroxine (SYNTHROID, LEVOTHROID) 25 MCG tablet Take 1 tablet by mouth Daily. 1/2 tablet daily 90 tablet 3 4 Active Active Problems Problem Noted Date Diagnosed Date Allergic rhinitis 03/27/2019 Disorder of thyroid gland 03/27/2019 Mehnaz's disease 11/12/2015 Immunizations Immunization Administration Dates Next Due DTaP 12/13/1997,10/05/1994,1993 DTaP / HiB / IPV 1993 Hep A, 2 Dose 12/30/2017 Hep B, Unspecified 10/05/1994,1993 Hepatitis A 11/22/2018 HiB 07/07/1994,1993 IPV 12/13/1997,07/07/1994 MMR 12/13/1997,07/07/1994 Meningococcal MCV4P (Menactra) 01/21/2012 Meningococcal, Unspecified 01/21/2012 Td, Not Adsorbed 10/07/2004 Tdap 01/21/2012 Varicella 08/10/1996 Family History Medical History Relation Name Comments Cancer Father Hyperlipidemia Father Migraines Father Cancer Maternal Grandfather Stroke Maternal Grandfather Cancer Maternal Grandmother Heart attack Maternal Grandmother Hyperlipidemia Maternal Grandmother Thyroid disease Maternal Grandmother Hyperlipidemia Mother Relation Name Status Comments Father Alive Maternal Grandfather Maternal Grandmother Mother Alive Social History Tobacco Use Types Packs/Day Years Used Date Smoking Tobacco: Never Smokeless Tobacco: Never Tobacco Cessation:Counseling Given: Not Answered Alcohol Use Standard Drinks/Week Comments No 0 (1 standard drink = 0.6 oz pur e alcohol) PHQ-2 Answer Date Recorded PHQ-2 Score 0 06/08/2019 Comments No Sex and Gender Information Value Date Recorded Sex Assigned at Not on file Legal Sex Female 10:15 AM EST Gender Identity Not on file Sexual Orientation Not on file Last Filed Vital Signs Vital Sign Reading Time Taken Comments Blood Pressure 112/70 06/07/2024 1:36 PM EST Pulse 97 06/07/2024 1:36 PM EST Temperature 36.7 C (98 F) 03/27/2019 2:50 PM EDT Respiratory Rate 14 03/27/2019 2:50 PM EDT Oxygen Saturation 100% 06/07/2024 1:36 PM EST Inhaled Oxygen Concentration - - Weight 48.5 kg (107 lb) 06/07/2024 1:36 PM EST Height 162.6 cm (5' 4 ) 06/07/2024 1:36 PM EST Body Mass Index 18.37 06/07/2024 1:36 PM EST Plan of Treatment Upcoming Encounters Date Type Department Care Team (Late st Contact Info) Description 06/08/2025 1:00 PM EST Office Visit [facility] END[facility]Y [address] [place] [address] Agatha Lee MD [address] [place] [address] Health Maintenance Due Date Last Done Comments Annual Gynecologic Pelvic and Breast Exam 1993 PAP SMEAR 2014 ANNUAL PHYSICAL 09/24/2016 HEPATITIS C SCREENING 09/24/2016 TDAP/TD VACCINES (3 - Td or Tdap) 01/20/2022 01/21/2012, 10/07/2004 INFLUENZA VACCINE 01/19/2025 05/12/2023, , 04/15/2021, Additional history exists Pneumococcal Vaccine 0-49 Aged Out No longer eligible based on patient's age to complete this topic Insurance EMPLOYEE Care Teams Sharepoint Web Developer Relationship Specialty Start Date End Date Luisa Grove MD [address] [place] [address] PCP - General Emergency Medicine 06/02/22
--- NOTE | 2025-05-03 15:30 | CT_ITS ---
FINAL REPORT TECHNIQUE: Thin section axial CT images of the facial bones and sinuses were obtained without contrast. Coronal and sagittal reformatted images were also obtained. This study was performed with techniques to keep radiation doses as low as reasonably achievable, (ALARA). Individualized dose reduction techniques using automated exposure control or adjustment of mA and/or kV according to the patient's size were employed. CLINICAL HISTORY: evaluate mastoid and brain COMPARISON: None FINDINGS: There is no evidence of mucosal thickening. No fluid levels are identified. The ostiomeatal units have an unremarkable appearance. The nasal septum is in the midline. No fracture or acute bony abnormality is identified. The mastoid air cells are normal in appearance. The middle ear cavity is unremarkable. IMPRESSION: No focal abnormality identified of the sinuses. Reviewed, Interpreted and Dictated by Steve Feng MD Transcribed by Josefa White Authenticated and [facility]
== END 2025-05-03 23:59 | disposition home or self-care (01) ==
LOC: RAD 15:11
PROVIDERS: PCP Emergency Medicine; Visit Provider Nurse Practitioner
DX: H65.90 Unspecified nonsuppurative otitis media, unspecified ear (principal); H69.90 Unspecified Eustachian tube disorder, unspecified ear; R42 Dizziness and giddiness; R26.89 Other abnormalities of gait and mobility
CPT/HCPCS: 70480